=== PATIENT | female | born 2000 ===

== ENCOUNTER 2023-11-07 06:27 | Outpatient (REF) | payer OTHER, SELFPAY ==
--- NOTE | ~2023-11-07 | US_ITS ---
EXAMINATION: US PELVIS COMPLETE CLINICAL INFORMATION: Irregular menses COMPARISON: None TECHNIQUE: Transabdominal and transvaginal imaging was performed. FINDINGS: The uterus is of normal size and echogenicity measuring 7.9 x 2.4 x 3.3 cm. A regular homogeneous endometrium is identified measuring 0.5 cm. Both ovaries are of normal size and echogenicity. The right measures 3.5 x 1.8 x 1.9 cm. The left measures 1.9 x 1.9 x 1.8 cm. There is no pelvic free fluid. US/US pelvic and transvaginal IMPRESSION: Unremarkable pelvic ultrasound.
== END 2023-11-07 06:28 | disposition home or self-care (01) ==
LOC: HO.UMASIMG 06:27
PROVIDERS: Visit Provider Nurse Practitioner Women's Health
DX: N92.6 Irregular menstruation, unspecified (principal)
CPT/HCPCS: 76830; 76856